=== PATIENT | female | born 2005 | race Caucasian/White ===

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

== ENCOUNTER 2025-01-27 22:48 | Emergency (ER) | payer OTHER ==
[~2025-01-27] VITALS: Ht 165.1 cm; Wt 74.0 kg
[~2025-01-27 22:48] MED LIST changes: +AMOX TR-K CLV1 EAC1 PO
[2025-01-27 23:09] LABS: BASOPHILS 0.5 % (0.1-1.2); EOSINOPHILS 0.8 % (0.7-5.8); LYMPHOCYTES 20.6 % (19.3-51.7); MCH 30.3 PG (25.6-32.2); MCHC 34.6 g/dL (32.2-35.5); MCV 87.6 fL (79.4-94.8); MONOCYTES 13.6 % (4.7-12.5); NEUTROPHILS 62.3 % (34.0-71.1); RBC 3.86 M/uL (3.93-5.22)
[2025-01-27 23:27] LABS: LACTATE DEHYDROGENASE 142.0 U/L (81-234)
[2025-01-27 23:28] LABS: ALT (SGPT) 15.0 U/L (14-59); AST (SGOT) 11.0 U/L (15-37); GLOMERULAR FILTRATION RATE,EST 148.0 mL/min (>60); PROTEIN, TOTAL 7.2 g/dL (6.4-8.2); UREA NITROGEN 7.0 mg/dL (7-18)
[2025-01-27 23:29] LABS: BLOOD/HGB, URINE NEGATIVE (Negative); KETONE, URINE TRACE (Negative); LEUK ESTERASE, URINE NEGATIVE (negative); NITRITE, URINE NEGATIVE (negative)
[2025-01-27 23:30] LABS: PROTEIN, RANDOM URINE 25.0 mg/dL (NOT ESTABLISHED)
[2025-01-27 23:49] LABS: ABO O; RH POSITIVE
[2025-01-28 00:09] VITALS: BP 133/86
[2025-01-28 00:24] LABS: INFLUENZA B NAA NEGATIVE (NEGATIVE); RESPIRATORY SYNCYTIAL VIR NAA NEGATIVE (NEGATIVE)
--- NOTE | 2025-01-29 22:20 | EKG ---
[facility] [address] [facility] [place] [address] Signed Normal sinus rhythm Prolonged QT Abnormal ECG When compared with ECG of 21-DEC-2018 14:50, PREVIOUS ECG IS PRESENT T wave inversion now evident in Inferior leads Non-specific change in ST segment in V2 Confirmed by Edgardo Ley MD () on 01/29/2025 10:20:30 PM Electronically Signed By: EDGARDO LEY MD 01/29/25 2220 PATIENT NAME: JEANIE CANTOR MJ Electrocardiogram DATE OF : [birth year] PHYSICIAN: EDGARDO LEY MD REPORT #: [id number] REPORT IS CONFIDENTIAL AND NOT TO BE RELEASED WITHOUT AUTHORIZATION
== END 2025-01-28 00:09 | disposition home or self-care (01) ==
LOC: ED 22:48
PROVIDERS: Family Medicine
DX: O99.891 Other specified diseases and conditions complicating pregnancy (principal); R07.89 Other chest pain; Z3A.31 31 weeks gestation of pregnancy
CPT/HCPCS: 36415; 80053; 81003; 82570; 83615; 84156; 84484; 84550; 85025; 85384; 86900; 86901; 87502; 93005; 93010; 99285; U0002